=== PATIENT | male | born 1955 | race Caucasian/White ===

== ENCOUNTER 2020-08-14 18:33 | Emergency (ER) | payer MEDICARE ==
[~2020-08-14] VITALS: Ht 167.6 cm; Wt 86.2 kg
[2020-08-14] MEDS ORDERED: SILDENAFIL CIT100 MG PO (18:50)
--- NOTE | 2020-08-15 21:13 | EKG ---
[facility] [address] [place] [address] Signed Normal sinus rhythm Nonspecific ST abnormality Abnormal ECG No previous ECGs available Confirmed by UJANY COLLINS DO ([id number]) on 08/15/2020 9:13:31 PM Electronically Signed By: JUANY COLLINS DO 08/15/202112 PATIENT NAME: MICHAEL MANNING Electrocardiogram DATE OF : 51 PHYSICIAN: JUANY COLLINS DO REPORT #: [id number] REPORT IS CONFIDENTIAL AND NOT TO BE RELEASED WITHOUT AUTHORIZATION
== END 2020-08-14 22:08 | disposition left against medical advice (07) ==
LOC: ED 18:33
DX: I21.4 Non-ST elevation (NSTEMI) myocardial infarction (principal); Z87.891 Personal history of nicotine dependence; Z88.0 Allergy status to penicillin; Z88.2 Allergy status to sulfonamides; Z88.1 Allergy status to other antibiotic agents; Z20.828 Contact with and (suspected) exposure to other viral communicable diseases
CPT/HCPCS: 71045; 80053; 83735; 84484; 85025; 93005; 93010; 99285-25; C9803; U0003